=== PATIENT | male | born 1960 | race Two or more races ===

== ENCOUNTER 2017-03-28 06:54 | Day surgery (SDC) | payer SELFPAY ==
[~2017-03-28] VITALS: Ht 177.8 cm; Wt 76.7 kg
[2017-03-28 07:45] LABS: BASOPHILS 0.2 % (0-2); EOSINOPHILS 2.8 % (0-7); HEMATOCRIT 42.4 % (42.0-54.0); HEMOGLOBIN 14.7 g/dL (13.5-17.5); IMMATURE GRANULOCYTES 0.3 % (0-5); LYMPHOCYTES 15.8 % (15-50); MCHC 34.7 g/dL (31.0-37.0); MCV 92.4 fL (80.0-100.0); MEAN PLATELET VOLUME 8.7 fL (7.4-10.4); MONOCYTES 5.3 % (2-11); NEUTROPHILS 75.6 % (40-80); PLATELET COUNT 268 10x3/uL (130-400); RBC 4.59 10x6/uL (4.20-6.10); RDW 13.3 % (11.5-14.5); WBC 12.3 10x3/uL (4.8-10.8)
[2017-03-28] MEDS ORDERED: VOLTAREN75 MG PO (07:53)
[2017-03-28 08:07] LABS: CALC OSMOLALITY 277 mosm/kg (275-300); CALCIUM 9.2 mg/dL (8.5-10.1); CARBON DIOXIDE 25.7 mmol/L (21.0-32.0); CHLORIDE - SERUM 105 mmol/L (98-107); CREATININE - SERUM 0.8 mg/dL (0.6-1.3); GLUCOSE 105 mg/dL (74-106); POTASSIUM - SERUM 3.8 mmol/L (3.5-5.1); SODIUM 139 mmol/L (136-145); UREA NITROGEN 12 mg/dL (7-18); eGFR NON AFRICAN AMERICAN > 90 mL/min (90-120)
[2017-03-28 08:11] VITALS: BP 153/96; Ht 177.8 cm; Wt 76.7 kg
[2017-03-28] MEDS ORDERED: HYDROCODONE-APA1 TAB PO (10:30)
--- NOTE | 2017-03-28 11:21 | NUR ---
1120 URINAL, ICE CAPS AND MOUTH MOISTURIZER PROVIDED FOR PT. FAMILY AT SIDE
--- NOTE | 2017-03-28 11:48 | NUR ---
PT RESTING EASILY. DRESSING REMAIN D/C/I TO GROIN. VSS. FULL LIQ DIET PROVIDED
--- NOTE | 2017-03-28 12:20 | NUR ---
PT RESTING EASILY. TOLERATED FULL LIQ, NO N/V. DRESSINGS REMAIN C/D/I. IV D/C'D CATH INTACT.
--- NOTE | 2017-03-28 13:05 | NUR ---
D/C INSTRUCTIONS EXPLAINED TO PT AND FAMILY, DAUGHTER. VOICED UNDERSTANDING. COPIES OF ALL GIVEN, WELL WRITTEN RX FOR [facility]CO PER DR. CARLISLE.
--- NOTE | 2017-03-28 13:12 | NUR ---
D/C'D HOME VIA W/C TO PRIVATE CAR.
--- NOTE | 2017-03-31 08:01 | OP ---
PATIENT NAME: ANGELITA BARDALES MEDICAL RECORD: [id number] :64 LOCATION:ES ADMISSION DATE: SURGEON: MINESH CARLISLE MD DATE OF OPERATION: 03/28/2017 PREOPERATIVE DIAGNOSIS: Bilateral inguinal hernias. POSTOPERATIVE DIAGNOSIS: Bilateral inguinal hernias. PROCEDURE: Bilateral inguinal hernia repairs with medium PHS mesh. SURGEON: Minesh Carlisle MD REPORT OF PROCEDURE: The patient's abdomen was prepped and draped in sterile fashion. An oblique incision was made on the left inguinal region. Electrocautery was used to dissect through the subcutaneous tissue down to the external oblique fascia. This fascia was opened up to the external ring using electrocautery. The spermatic cord was elevated and a Carlos Manuel was placed around it. The patient had a large direct hernia defect. This was freed up from the spermatic cord and placed back into the abdominal cavity and the preperitoneal space of Retzius was opened up and a medium PHS mesh was inserted. The ilioinguinal nerve was found and high ligated. We then sutured the mesh into place using multiple 0 Vicryls. The wound was then irrigated out with normal saline. The external oblique fascia was then closed with running 2-0 Vicryls, Bakari's was closed with interrupted 3-0 Vicryls, and the skin was closed with running subcutaneous 5-0 Monocryl. We then approached the right side and again, an oblique incision was made above the inguinal ligament. Electrocautery was used to dissect through the subcutaneous tissue down to the external oblique fascia. This fascia was opened up to the external ring using electrocautery. The ilioinguinal nerve was found and high ligated. The spermatic cord was then elevated and a Franklin was placed around it. The patient again had a large direct hernia defect. The preperitoneal space of Retzius was opened up in all directions and a medium PHS mesh was inserted. This was sutured down on all 4 sides using multiple interrupted 0 Vicryls. After irrigated out the wounds, then the external oblique fascia was closed with running 2-0 Vicryl, Bakari's was closed with interrupted 3-0 Vicryl, and the skin was closed with running subcutaneous 5-0 Monocryl. A total of 20 mL of 0.25% Marcaine with epinephrine was infused into the surrounding tissues and the wounds were dressed appropriately. COMPLICATIONS: None. CONDITION: Stable. ANESTHESIA: General endotracheal and local. BLOOD LOSS: Minimal. TRANSINT:[id number] Voice Confirmation ID: [id number] DOCUMENT ID: [id number] OPERATIVE REPORT [id number] ANGELITA BARDALES CHRISTIAN MD at 0801 CC: [id number] DICTATION DATE: 03/28/17 1034 [employer] APPLICATION DEVELOPER: 03/28/17 1223 [facility] 03/28/[address] [id number]
== END 2017-03-28 13:16 | disposition home or self-care (01) ==
LOC: D.OPS 06:54 → D.PAN 13:15 → D.OPS 13:15
PROVIDERS: Surgery
DX: K40.20 Bilateral inguinal hernia, without obstruction or gangrene, not specified as recurrent (principal); Z01.812 Encounter for preprocedural laboratory examination